=== PATIENT | female | born 1950 | race Asian ===

== ENCOUNTER 2020-12-05 11:08 | Inpatient (IN) | payer MEDICAID, OTHER ==
[~2020-12-05] VITALS: Ht 162.6 cm; Wt 54.1 kg
[2020-12-05] MEDS ORDERED: MORPHINE SULFATE 4 MG/ML SYR/VIAL IV ONE (11:15)
[2020-12-05] MEDS ORDERED: SODIUM CHLORIDE 0.9% 500 ML IVB ONE (11:15)
[2020-12-05] MEDS ORDERED: ONDANSETRON HCL 4 MG/2 ML VIAL IV ONE (11:15)
[2020-12-05 12:37] LABS: Basophils # (auto) 0 10 ^3/uL (0-0.2); Hematocrit 32.3 % (36.0-46.0); Neutrophils # (auto) 1.6 10 ^3/uL (1.6-8.6); Red Blood Cells 4.17 10^6/uL (4.0-5.20); White Blood Cell 4.4 10^3/uL (4.4-10.8)
[2020-12-05 12:39] LABS: Basophils % (auto) 0.2 % (0.0-2.0); Eosinophils # (auto) 0 10 ^3/uL (0-0.8); Hemoglobin 10.4 g/dL (12.2-16.2); Lymphocytes # (auto) 2.3 10 ^3/uL (0.4-5.4); Lymphocytes % (auto) 52.2 % (10.0-50.0); Mean Corpuscular Hemoglobin 24.9 pg (28.0-32.0); Mean Corpuscular Hgb Conc. 32.2 g/dL (32.0-36.0); Mean Corpuscular Volume 77.3 fL (80.0-100.0); Monocytes # (auto) 0.5 10 ^3/uL (0-1.3); Monocytes % (auto) 10.5 % (0.0-12.0); Neutrophils % (auto) 36.1 % (37.0-80.0); Nucleated Red Blood Cells % 0.2 %; Platelet Count (auto) 89 10^3/uL (140-450); Red Cell Distribution Width 18.3 % (11.8-14.3)
[2020-12-05 13:00] LABS: Urine Bacteria MANY /hpf (None Seen); Urine Blood 1+ /uL (Negative); Urine WBC 56 /hpf (0 - 5)
[2020-12-05 13:01] LABS: Amylase 47 U/L (25-115); Anion Gap 7 (5-15); Blood Urea Nitrogen 14 mg/dL (7-18); Calcium 9.4 mg/dL (8.5-10.1); Carbon Dioxide 23 mmol/L (21-32); Chloride 111 mmol/L (98-107); Glucose 150 mg/dL (74-106); Lipase 144 U/L (73-393); Magnesium 2.1 mg/dL (1.6-2.6); Potassium 4.2 mmol/L (3.5-5.1); Sodium 141 mmol/L (136-145)
[2020-12-05 13:07] LABS: Alanine Aminotransferase 33 U/L (13-56); Alkaline Phosphatase 195 U/L (45-117); Aspartate Aminotransferase 47 U/L (15-37); BUN/Creatinine Ratio 25.9; Bilirubin, Total 2.9 mg/dL (0.2-1.0); GFR African American 144 mL/min; GFR Non-African American 119 mL/min; Total Protein 6.9 g/dL (6.4-8.2)
[2020-12-05] MEDS ORDERED: cefTRIAXone 1GM/50ML D5W 50 ML IV ONE (14:00)
[2020-12-05] MEDS ORDERED: FUROSEMIDE 40 MG/4 ML VIAL IV ONE (14:00)
[2020-12-05] MEDS ORDERED: MORPHINE SULF INJ 2 MG/ML SYRINGE 1ML IV PRN (16:00)
[2020-12-05] MEDS ORDERED: NITROGLYCERIN 0.4 MG SL TAB SL PRN (16:00)
[2020-12-05] MEDS ORDERED: IOHEXOL 300 MG/ML 100ML BOTTLE IJ ONE (16:12)
[2020-12-05] MEDS: RIVAROXABAN 20 MG TAB PO SCH (18:09)
[2020-12-05] MEDS: CARVEDILOL 3.125 MG TAB PO SCH (22:00)
[2020-12-05 23:25] VITALS: BP 108/53
[2020-12-06 05:00] VITALS: BP 124/68
[2020-12-06 05:52] LABS: Mean Corpuscular Volume 76.5 fL (80.0-100.0); Platelet Count (auto) 98 10^3/uL (140-450)
[2020-12-06 05:54] LABS: Hematocrit 30.9 % (36.0-46.0); Hemoglobin 10.3 g/dL (12.2-16.2); Mean Corpuscular Hemoglobin 25.6 pg (28.0-32.0); Mean Corpuscular Hgb Conc. 33.4 g/dL (32.0-36.0); Red Blood Cells 4.04 10^6/uL (4.0-5.20); Red Cell Distribution Width 18.1 % (11.8-14.3); White Blood Cell 5.2 10^3/uL (4.4-10.8)
[2020-12-06 06:02] LABS: Band Neutrophils % (manual) 0; Basophils % (manual) 0 (0.0-2.0); Blast Cells 0; Metamyelocytes % 0; Myelocytes % 0; Promyelocytes % 0; Reactive Lymphocytes 0
[2020-12-06 06:14] LABS: Calcium 8.7 mg/dL (8.5-10.1); Potassium 3.3 mmol/L (3.5-5.1)
[2020-12-06 06:15] LABS: BUN/Creatinine Ratio 28.9
[2020-12-06 06:38] LABS: Eosinophils % (manual) 2 (0-7); Lymphocytes % (manual) 54 (10.0-50.0); Monocytes % (manual) 8 (0-12)
[2020-12-06 08:59] VITALS: BP 102/54
[2020-12-06] MEDS: cefTRIAXone 1GM/50ML D5W 50 ML IV SCH (09:36)
[2020-12-06] MEDS: CARVEDILOL 3.125 MG TAB PO SCH ×2 (09:44→22:31)
[2020-12-06 12:43] VITALS: BP 120/59
[2020-12-06 16:39] VITALS: BP 116/71
[2020-12-06] MEDS: RIVAROXABAN 20 MG TAB PO SCH (17:15)
[2020-12-06] MEDS ORDERED: ACETAMINOPHEN 325 MG TAB PO PRN (21:00)
[2020-12-06 22:00] VITALS: BP 102/72
[2020-12-07 05:00] VITALS: BP 108/69
[2020-12-07 08:00] VITALS: BP 110/64
[2020-12-07] MEDS ORDERED: POTA-264 (08:25)
[2020-12-07] MEDS ORDERED: FUR20T PO (08:25)
[2020-12-07] MEDS ORDERED: MET25T PO (08:25)
[2020-12-07] MEDS ORDERED: RIV20T PO (08:25)
[2020-12-07] MEDS: cefTRIAXone 1GM/50ML D5W 50 ML IV SCH (09:19)
[2020-12-07] MEDS: FUROSEMIDE 20 MG TAB PO SCH (09:20)
[2020-12-07] MEDS: CARVEDILOL 3.125 MG TAB PO SCH ×2 (09:21→22:14)
[2020-12-07] MEDS ORDERED: PNEUMOCOCCAL VACC POLYS 25 MCG/0.5 ML VIAL IM ONE (10:00)
[2020-12-07] MEDS ORDERED: INFLUENZA QUAD 2020-2021 0.5 ML SYRG IM ONE (10:00)
[2020-12-07 12:00] VITALS: BP 99/61
[2020-12-07 16:00] VITALS: BP 98/58
[2020-12-07] MEDS: RIVAROXABAN 20 MG TAB PO SCH (17:41)
[2020-12-07 20:00] VITALS: BP 106/66
[2020-12-07 22:00] VITALS: BP 104/67
[2020-12-08 05:00] VITALS: BP 107/63
[2020-12-08 08:58] VITALS: BP 100/60
[2020-12-08] MEDS: cefTRIAXone 1GM/50ML D5W 50 ML IV SCH (09:28)
[2020-12-08] MEDS: FUROSEMIDE 20 MG TAB PO SCH (09:29)
[2020-12-08] MEDS: CARVEDILOL 3.125 MG TAB PO SCH (09:29)
[2020-12-08] MEDS ORDERED: POTASSIUM CHL 20 Meq TABLET PO ONE (09:30)
[2020-12-08 10:22] VITALS: BP 100/67
[2020-12-08 14:23] VITALS: BP 94/52
== END 2020-12-08 14:30 | disposition home or self-care (01) | DRG 194 ==
LOC: ER 11:08 → TELE 15:52 → TELE-CENTR 22:58
PROVIDERS: ADMIT Nurse Practitioner Acute Care; ATTEND Family Medicine
DX: I11.0 Hypertensive heart disease with heart failure (principal); E44.0 Moderate protein-calorie malnutrition; D69.6 Thrombocytopenia, unspecified; I27.20 Pulmonary hypertension, unspecified; I48.20 Chronic atrial fibrillation, unspecified; E11.9 Type 2 diabetes mellitus without complications; D72.820 Lymphocytosis (symptomatic); E87.6 Hypokalemia; N39.0 Urinary tract infection, site not specified; I50.23 Acute on chronic systolic (congestive) heart failure; R10.9 Unspecified abdominal pain; I34.0 Nonrheumatic mitral (valve) insufficiency; Z79.01 Long term (current) use of anticoagulants; Z82.49 Family history of ischemic heart disease and other diseases of the circulatory system; Z68.21 Body mass index [BMI] 21.0-21.9, adult; Z20.822 Contact with and (suspected) exposure to COVID-19
CPT/HCPCS: 36415; 71045; 71260; 74176; 80048; 80053; 81001; 82150; 83690; 83735; 83880; 84484; 85007; 85025; 85027; 87086; 87426; 93005; 93306; 96365; 96375; G0378; J0696; J2405

== ENCOUNTER 2021-04-17 21:15 | Inpatient (IN) | payer MEDICAID ==
[~2021-04-17] VITALS: Ht 157.5 cm; Wt 58.7 kg
[~2021-04-17 21:15] MED LIST: FUR20T PO; MET25T PO; POTA-264; RIV20T PO
[2021-04-17 22:41] LABS: Basophils # (auto) 0 10 ^3/uL (0-0.2); Eosinophils # (auto) 0 10 ^3/uL (0-0.8); Monocytes # (auto) 0.5 10 ^3/uL (0-1.3); Monocytes % (auto) 8.3 % (0.0-12.0); Nucleated Red Blood Cells % 0.2 %
[2021-04-17 22:47] LABS: Basophils % (auto) 0.5 % (0.0-2.0); Eosinophils % (auto) 0.5 % (0.0-7.0); Hematocrit 33.8 % (36.0-46.0); Lymphocytes # (auto) 2.9 10 ^3/uL (0.4-5.4); Lymphocytes % (auto) 44.2 % (10.0-50.0); Mean Corpuscular Hemoglobin 24.8 pg (28.0-32.0); Mean Corpuscular Hgb Conc. 32.4 g/dL (32.0-36.0); Mean Corpuscular Volume 76.3 fL (80.0-100.0); Neutrophils # (auto) 3.1 10 ^3/uL (1.6-8.6); Neutrophils % (auto) 46.5 % (37.0-80.0); Red Blood Cells 4.43 10^6/uL (4.0-5.20); Red Cell Distribution Width 17.1 % (11.8-14.3); White Blood Cell 6.6 10^3/uL (4.4-10.8)
[2021-04-17 22:58] LABS: Albumin 3.4 g/dL (3.4-5.0); Anion Gap 6 (5-15); Blood Urea Nitrogen 28 mg/dL (7-18); Calcium 8.8 mg/dL (8.5-10.1); Carbon Dioxide 21 mmol/L (21-32); Chloride 112 mmol/L (98-107); Glucose 93 mg/dL (74-106); Magnesium 2.4 mg/dL (1.6-2.6); Potassium 4.9 mmol/L (3.5-5.1); Sodium 139 mmol/L (136-145)
[2021-04-17 23:04] LABS: Alanine Aminotransferase 32 U/L (13-56); Alkaline Phosphatase 259 U/L (45-117); Aspartate Aminotransferase 47 U/L (15-37); BUN/Creatinine Ratio 32.9; Bilirubin, Total 3.4 mg/dL (0.2-1.0); GFR African American 85 mL/min; GFR Non-African American 70 mL/min
[2021-04-18] MEDS ORDERED: PANTOPRAZOLE 40 MG/10 ML VIAL INJ IV ONE (02:30)
[2021-04-18] MEDS ORDERED: SODIUM CHLORIDE 0.9% 1,000 ML IV ONE (02:30)
[2021-04-18] MEDS ORDERED: metroNIDAZOLE 500MG/100ML 100 ML IV ONE (02:30)
[2021-04-18] MEDS ORDERED: ONDANSETRON HCL 4 MG/2 ML VIAL IV ONE (02:30)
[2021-04-18] MEDS ORDERED: CEFTRIAXONE SODIUM 2 GM in D5W 5% 50 ML IV ONE (02:30)
[2021-04-18 03:38] LABS: INR 1.54 (0.9-1.15); Partial Thromboplastin Time 35.1 sec (23.6-33.0)
[2021-04-18] MEDS ORDERED: NITROGLYCERIN 0.4 MG SL TAB SL PRN (03:45)
[2021-04-18] MEDS ORDERED: MORPHINE SULFATE INJECTION 2 MG/2 ML SYRG IV PRN (03:45)
[2021-04-18] MEDS ORDERED: MORPHINE SULFATE 4 MG/ML SYR/VIAL IV PRN (03:45)
[2021-04-18] MEDS ORDERED: ONDANSETRON HCL 4 MG/2 ML VIAL IV PRN (03:45)
[2021-04-18] MEDS ORDERED: SODIUM CHLORIDE 0.9% 1,000 ML IV SCH (03:45)
[2021-04-18] MEDS ORDERED: cefTRIAXone SOD 1,000 MG VL ONE (05:28)
[2021-04-18] MEDS ORDERED: GASTROGRAFIN 120 ML SOL ONE (08:55)
[2021-04-18] MEDS ORDERED: EZ-GAS II GRANULES (RADIOLOGY USE) PO ONE (08:59)
[2021-04-18] MEDS: PANTOPRAZOLE 40 MG/10 ML VIAL INJ IV SCH ×2 (09:42→22:25)
[2021-04-18] MEDS: metroNIDAZOLE 500MG/100ML 100 ML IV SCH ×2 (14:28→22:25)
[2021-04-18] MEDS: SODIUM CHLORIDE 0.9% 1,000 ML IV SCH (17:34)
[2021-04-18 23:54] LABS: Urine Bacteria NONE SEEN /hpf (None Seen); Urine Blood 1+ /uL (Negative); Urine Specific Gravity 1.016 (1.001-1.035); Urine WBC 2 /hpf (0 - 5)
[2021-04-19 04:00] LABS: Basophils # (auto) 0 10 ^3/uL (0-0.2); Eosinophils # (auto) 0 10 ^3/uL (0-0.8); Lymphocytes # (auto) 2.6 10 ^3/uL (0.4-5.4); Mean Corpuscular Hemoglobin 24.9 pg (28.0-32.0); Neutrophils # (auto) 1.8 10 ^3/uL (1.6-8.6); Nucleated Red Blood Cells % 0.2 %
[2021-04-19 04:03] LABS: Basophils % (auto) 0.2 % (0.0-2.0); Eosinophils % (auto) 0.6 % (0.0-7.0); Hematocrit 30.6 % (36.0-46.0); Lymphocytes % (auto) 52.8 % (10.0-50.0); Mean Corpuscular Hgb Conc. 32.8 g/dL (32.0-36.0); Mean Corpuscular Volume 75.9 fL (80.0-100.0); Monocytes # (auto) 0.6 10 ^3/uL (0-1.3); Monocytes % (auto) 11.1 % (0.0-12.0); Neutrophils % (auto) 35.3 % (37.0-80.0); Red Blood Cells 4.03 10^6/uL (4.0-5.20); Red Cell Distribution Width 17.1 % (11.8-14.3)
[2021-04-19 04:12] LABS: INR 1.51 (0.9-1.15)
[2021-04-19 04:38] LABS: Albumin 2.8 g/dL (3.4-5.0); Calcium 8.6 mg/dL (8.5-10.1); Magnesium 2.1 mg/dL (1.6-2.6); Potassium 3.5 mmol/L (3.5-5.1)
[2021-04-19 04:43] LABS: BUN/Creatinine Ratio 28.6; Bilirubin, Total 3.1 mg/dL (0.2-1.0); Total Protein 6.8 g/dL (6.4-8.2)
[2021-04-19] MEDS: metroNIDAZOLE 500MG/100ML 100 ML IV SCH ×3 (06:19→21:35)
[2021-04-19] MEDS: SODIUM CHLORIDE 0.9% 1,000 ML IV SCH (09:25)
[2021-04-19] MEDS: cefTRIAXone 1GM/50ML D5W 50 ML IV SCH (09:33)
[2021-04-19] MEDS: PANTOPRAZOLE 40 MG/10 ML VIAL INJ IV SCH ×2 (15:53→21:35)
[2021-04-19 16:05] VITALS: BP 137/66
[2021-04-19 17:00] VITALS: BP 137/66
[2021-04-19 22:00] VITALS: BP 134/63
[2021-04-20] MEDS: SODIUM CHLORIDE 0.9% 1,000 ML IV SCH ×2 (02:05→13:59)
[2021-04-20 05:00] VITALS: BP 139/72
[2021-04-20] MEDS: metroNIDAZOLE 500MG/100ML 100 ML IV SCH (05:40)
[2021-04-20 06:16] LABS: Basophils # (auto) 0 10 ^3/uL (0-0.2); Eosinophils # (auto) 0.1 10 ^3/uL (0-0.8); Hemoglobin 10.2 g/dL (12.2-16.2); Lymphocytes # (auto) 2.4 10 ^3/uL (0.4-5.4); Nucleated Red Blood Cells % 0.3 %; White Blood Cell 4.5 10^3/uL (4.4-10.8)
[2021-04-20 06:19] LABS: Basophils % (auto) 0.2 % (0.0-2.0); Eosinophils % (auto) 1.6 % (0.0-7.0); Hematocrit 30.7 % (36.0-46.0); Lymphocytes % (auto) 53.4 % (10.0-50.0); Mean Corpuscular Hemoglobin 25.2 pg (28.0-32.0); Mean Corpuscular Hgb Conc. 33.1 g/dL (32.0-36.0); Mean Corpuscular Volume 76.1 fL (80.0-100.0); Monocytes # (auto) 0.4 10 ^3/uL (0-1.3); Monocytes % (auto) 9.9 % (0.0-12.0); Neutrophils # (auto) 1.6 10 ^3/uL (1.6-8.6); Neutrophils % (auto) 34.9 % (37.0-80.0); Red Blood Cells 4.03 10^6/uL (4.0-5.20); Red Cell Distribution Width 17.1 % (11.8-14.3)
[2021-04-20 06:53] LABS: Potassium 3.4 mmol/L (3.5-5.1)
[2021-04-20 07:00] LABS: Albumin 2.6 g/dL (3.4-5.0); BUN/Creatinine Ratio 29.4; Bilirubin, Total 2.8 mg/dL (0.2-1.0); Calcium 8.2 mg/dL (8.5-10.1); Magnesium 1.9 mg/dL (1.6-2.6); Total Protein 6.3 g/dL (6.4-8.2)
[2021-04-20] MEDS: cefTRIAXone 1GM/50ML D5W 50 ML IV SCH (08:40)
[2021-04-20 09:00] VITALS: BP 131/81
[2021-04-20] MEDS: PANTOPRAZOLE 40 MG/10 ML VIAL INJ IV SCH ×2 (09:44→21:25)
[2021-04-20] MEDS ORDERED: MAGNESIUM SULFATE 1GM/100ML 100 ML IV ONE (12:45)
[2021-04-20] MEDS ORDERED: POTASSIUM CHL 20 Meq TABLET PO ONE (12:45)
[2021-04-20 13:00] VITALS: BP 119/72
[2021-04-20 14:18] LABS: Hepatitis B Surface Antibody Positive
[2021-04-20 14:57] LABS: Hepatitis A Total Antibody Positive
[2021-04-20 15:36] LABS: Hepatitis B Surface Antigen Negative (Negative)
[2021-04-20 15:37] LABS: Hepatitis B Core Total AB Negative; Hepatitis C Antibody Negative (Negative)
[2021-04-20 17:00] VITALS: BP 139/81
[2021-04-20 22:00] VITALS: BP 132/78
[2021-04-21 05:00] VITALS: BP 132/76
[2021-04-21 05:53] LABS: Basophils # (auto) 0 10 ^3/uL (0-0.2); Eosinophils # (auto) 0.1 10 ^3/uL (0-0.8); Eosinophils % (auto) 1.6 % (0.0-7.0); Hemoglobin 10.3 g/dL (12.2-16.2); Lymphocytes # (auto) 1.8 10 ^3/uL (0.4-5.4); Monocytes # (auto) 0.4 10 ^3/uL (0-1.3); Neutrophils # (auto) 1.9 10 ^3/uL (1.6-8.6); White Blood Cell 4.2 10^3/uL (4.4-10.8)
[2021-04-21 05:56] LABS: Basophils % (auto) 0.5 % (0.0-2.0); Lymphocytes % (auto) 43.4 % (10.0-50.0); Mean Corpuscular Hgb Conc. 33.2 g/dL (32.0-36.0); Mean Corpuscular Volume 75.3 fL (80.0-100.0); Neutrophils % (auto) 44.5 % (37.0-80.0); Nucleated Red Blood Cells % 0.5 %; Red Blood Cells 4.11 10^6/uL (4.0-5.20); Red Cell Distribution Width 17.5 % (11.8-14.3)
[2021-04-21 05:58] LABS: INR 1.44 (0.9-1.15)
[2021-04-21 06:07] LABS: Albumin 2.7 g/dL (3.4-5.0); Bilirubin, Direct 2.8 mg/dL (0-0.2); Magnesium 1.9 mg/dL (1.6-2.6); Potassium 3.6 mmol/L (3.5-5.1)
[2021-04-21 06:17] LABS: Bilirubin, Total 3.4 mg/dL (0.2-1.0); Total Protein 6.4 g/dL (6.4-8.2)
[2021-04-21] MEDS ORDERED: diphenhdrAMINE HCL 50 MG/1 ML VL ONE (08:48)
[2021-04-21] MEDS ORDERED: LIDOCAINE VISCOUS 2% 15ML UD ONE (08:48)
[2021-04-21 09:00] VITALS: BP 138/78
[2021-04-21] MEDS: PANTOPRAZOLE 40 MG/10 ML VIAL INJ IV SCH (09:46)
[2021-04-21] MEDS: fentaNYL CITRATE 100 MCG/2 ML VL ONE ×2 (09:55→09:58)
[2021-04-21] MEDS: MIDAZOLAM HCL 5 MG/ML-1ML VIAL ONE ×2 (09:55→09:58)
[2021-04-21] MEDS ORDERED: SUCR1TAB22 PO (11:18)
[2021-04-21] MEDS ORDERED: PANT40TA2 PO (11:18)
[2021-04-21] MEDS: SODIUM CHLORIDE 0.9% 1,000 ML IV SCH (11:25)
[2021-04-21 13:00] VITALS: BP 132/76
[2021-04-21 15:04] VITALS: BP 132/76
== END 2021-04-21 16:45 | disposition home or self-care (01) | DRG 241 ==
LOC: ER 21:18 → TELE 04-18 03:48 → TELE-WESTW 04-19 15:35
PROVIDERS: ADMIT Nurse Practitioner; ATTEND Internal Medicine
PROC: 0DJ08ZZ Inspection of Upper Intestinal Tract, Via Natural or Artificial Opening Endoscopic (ICD-10-PCS; principal; 2021-04-21 09:50)
DX: K29.71 Gastritis, unspecified, with bleeding (principal); D68.9 Coagulation defect, unspecified; D69.6 Thrombocytopenia, unspecified; I50.42 Chronic combined systolic (congestive) and diastolic (congestive) heart failure; I11.0 Hypertensive heart disease with heart failure; I48.0 Paroxysmal atrial fibrillation; D64.9 Anemia, unspecified; E87.6 Hypokalemia; K76.9 Liver disease, unspecified; Z20.822 Contact with and (suspected) exposure to COVID-19; K76.0 Fatty (change of) liver, not elsewhere classified; Z87.11 Personal history of peptic ulcer disease
CPT/HCPCS: 36415; 71045; 74176; 74246; 76705; 78226; 80053; 80076; 81001; 83605; 83735; 83880; 84132; 84484; 85025; 85610; 85730; 86704; 86706; 86708; 86803; 86850; 86900; 86901; 87040; 87340; 87426; 93005; 96361; 96365; 96367; 96375; 97163; 99291; C9113; G0378; J0696; J2250; J2405; J3490; J7060